=== PATIENT | female | born 2005 | race Caucasian/White ===

== ENCOUNTER 2023-03-09 17:56 | Inpatient (IN) ==
[2023-03-09] MEDS ORDERED: ACETAMINOPHEN 325 MG TAB PO STA (18:25)
[2023-03-09] MEDS ORDERED: SODIUM CHLORIDE 0.9% 500 ML IV STA (18:25)
[2023-03-09 20:33] LABS: Basophils # (auto) 0.04 K/uL (0.00-0.20); Basophils % (auto) 0.3 %; Eosinophils # (auto) 0.04 K/uL (0.00-0.50); Eosinophils % (auto) 0.3 %; Hematocrit (blood only) 42.3 % (37.0-47.0); Hemoglobin 14.5 g/dl (12.0-16.0); Immature Granulocytes # (auto) 0.02 K/uL (0.01-0.20); Immature Granulocytes % (auto) 0.2 %; Lymphocytes % (auto) 9.2 %; Mean Corpuscular Hemoglobin 30.3 pg (25.0-34.0); Mean Corpuscular Hgb Conc 34.3 g/dL (32.0-36.0); Mean Corpuscular Volume 88.3 fL (80.0-100.0); Mean Platelet Volume 8.8 fL (9.4-12.4); Monocytes # (auto) 0.56 K/uL (0.11-0.59); Monocytes % (auto) 4.3 %; Neutrophils % (auto) 85.7 %; Platelet Count 385 K/uL (130-400); RDW Coefficient of Variation 12.5 % (11.5-14.5); RDW Standard Deviation 40.9 fL (36.4-46.3); Red Blood Count 4.79 M/uL (4.20-5.40); White Blood Count 13.06 K/ul (4.8-10.8)
[2023-03-09 20:48] LABS: Albumin Globulin Ratio 1.6 (0.9-2); Albumin Level 5.2 gm/dl (3.4-5.0); BUN Creatinine Ratio 10.8 (10-20); Bilirubin,Total 0.5 mg/dl (0.2-1.0); Calcium 10.4 mg/dl (8.6-10.3); Creatinine Clr Calc Pharmacy 113.9 ml/min; Est GFR (African American) 118.5 ml/min; Est GFR (Non-African American) 102.2 ml/min; Globulin 3.3 gm/dl (2.5-4.0); Potassium 3.7 mmol/L (3.5-5.1); Total Protein 8.5 gm/dl (6.0-8.3)
[2023-03-09 20:55] LABS: Troponin I High Sensitivity 2.8 pg/ml (0-14)
[2023-03-09 20:59] LABS: Pregnancy Test, Serum Negative (Negative)
[2023-03-09 21:02] LABS: Partial Thromboplastin Ratio 1.2; Partial Thromboplastin Time 34.4 Seconds (21.0-31.0); Prothrombin Time 10.9 Seconds (9.0-12.0)
[2023-03-09 21:22] LABS: Procalcitonin < 0.05 ng/ml (0-0.5)
[2023-03-09 21:29] LABS: Appearance Urine Clear (Clear); Bacteria Urine Automated Negative (Negative); Bilirubin Urine Negative (Negative); Blood Urine Negative (Negative); Cast Urine Automated 0 /lpf (0-5); Color Urine Yellow; Epithelial Cell Urine Auto >30 /lpf (0-5); Glucose Urine UA Negative (Negative); Ketones Urine Negative (Negative); Leukocyte Esterase Urine 1+ (Negative); Nitrite Urine Negative (Negative); Protein Urine Negative (Negative); RBC Urine Automated 0-4 /hpf (0-4); Specific Gravity Urine 1.021 (1.000-1.030); Urobilinogen Urine Negative (Negative)
[2023-03-09] MEDS ORDERED: SODIUM CHLORIDE 0.9% 1,000 ML IV ONE (21:52)
[2023-03-09] MEDS ORDERED: ACETAMINOPHEN 325 MG TAB ONE (21:53)
[2023-03-09] MEDS ORDERED: PIPERACILLIN/TAZOBACTAM 4.5 GM/120 ML BAG IV ONE (21:58)
[2023-03-09] MEDS ORDERED: KETOROLAC TROMETHAMINE 15 MG/ML VIAL IV STA (22:06)
--- NOTE | 2023-03-09 22:12 | Emergency Department Note ---
Impression & Plan Pyelonephritis, Tachycardia, Bilateral flank pain, Failure of outpatient treatment ED Provider Note NAME: AISHWARYA PARKER AGE: 17 SEX: F : 2005 ARRIVES VIA: Walk-In INFORMANT: [Patient] ED PROVIDER(S): [Deepak Stanton MD] CHIEF COMPLAINT: Flank pain HISTORY OF PRESENT ILLNESS: The patient is a 17-year-old female who presents to the ER with bilateral flank pain and concerns for a kidney infection. The patient was here on the , 4 days ago. She had been diagnosed with pyelonephritis and placed on Cipro. During her ED visit, she had a CT of the abdomen pelvis, there was no urinary obstruction. Her urine culture recently returned showing an organism that was not sensitive to Cipro, staph saprophyticus. She was switched to Bactrim, she has taken 1 dose so far. Patient states that she has bilateral flank pain now, it was initially just left-sided pain. She feels nauseated. She is shaky. She is concerned that she is getting worse. She is here with her mother. The patient had urinary burning that began about 6 days ago. The left flank pain began about 4 days ago. Again, the pain is now in both flanks. There has been no cough or congestion. She has never had a kidney infection before. She is not short of breath. PMHx/PSHx: See Below SOCIAL HISTORY: See Below. PHYSICAL EXAM: GENERAL: Patient is in moderate distress from pain. Tearful. HEENT: No acute trauma, normocephalic atraumatic, mucous membranes moist, no nasal congestion. NECK: No stridor, no adenopathy, no meningismus, trachea is midline. LUNGS: Clear to auscultation bilaterally, no wheeze, no rhonchi, breath sounds equal. HEART: Tachycardic, regular rhythm, no murmurs. ABDOMEN: Soft, mildly diffusely tender, no rebound. EXTREMITIES: No cyanosis or edema, full range of motion of all the joints without pain or difficulty, no signs for acute trauma. NEUROLOGIC: Oriented x 3, no acute motor or sensory deficits, no focal weakness. SKIN: No rash, no jaundice, no diaphoresis. DIFFERENTIAL DIAGNOSIS: Bacteremia or sepsis, pyelonephritis, failed outpatient treatment, renal failure, dehydration, electrolyte imbalance, among others. EMERGENCY DEPARTMENT COURSE/PROCEDURES: Prior/Outside records reviewed: Recent ED note, recent culture results. ECG per my interpretation: Indication was possible sepsis. The ECG shows sinus tachycardia with a rate of 118. There is some nonspecific ST change primarily in the inferior leads. There is no ST elevation. No PVCs. The QTc is 417. Continuous Cardiac Monitoring per my interpretation: An order was placed for continuous cardiac monitoring. The monitor shows a rate of 116 with sinus tachycardia. MEDICAL DECISION MAKING: There is a mild leukocytosis, this would be consistent with infection. There is a normal hemoglobin and platelet count. No concerning coagulopathy. No renal failure or significant electrolyte abnormality. Lactic acid level is not elevated making severe sepsis less likely. No concerning liver enzyme elevation. ECG showed a sinus tachycardia, no acute ischemia. Cardiac enzyme testing x1 was not consistent with acute cardiac injury. Procalcitonin level was not not elevated making serious bacterial infection less likely. testing returned negative. Urinalysis returned with findings consistent with possible infection versus some contamination. On exam, the patient was tachycardic and febrile. The patient has bilateral pyelonephritis. She has an organism which has not responded to the Cipro that was prescribed. She was switched to Bactrim just today but, presents to the ED with worsening complaints and worsening of her illness. She has failed outpatient treatment. The patient was given IV saline, IV Toradol, IV Zosyn. The Zosyn should cover the bacterial infection nicely. I spoke to the patient and her family. I do think a hospital stay is warranted. She has worsened despite outpatient treatment. IV antibiotics are indicated. The urinary infection is somewhat resistant and unfortunately, did not respond to the prescribed antibiotics. I spoke with case management, the on-call hospitalist was consulted. DISPOSITION: Patient's presentation and findings warrant a hospital stay. Past Med/Surg History Medical History Sinusitis Social History Smoking Status: Never smoker Hx Substance Use: No Preferred Language: Chilean Communication Ability: Effective Current Living Situation: Parent Feels Safe at Home: Yes Safety Concerns: Feels Safe At This Time Assistive Devices: None Allergies Allergies Allergy/AdvReac Type Severity Reaction Status Date / Time cefuroxime [From Ceftin] Allergy Intermediate FEET Verified 04/03/22 16:22 SWELLING, HIVES, FEVER A SMALL CHILD pollen extracts Allergy Intermediate ITCHY Verified 04/03/22 16:22 EYES, SNEEZING, CONGESTION Home Meds Previous Rx's Medication Instructions Recorded methylprednisolone 4 mg tablets in 4 mg PO DIRECTED #21 ea 04/03/22 a dose pack (Medrol (Oneal)) ciprofloxacin HCl 500 mg tablet 500 mg PO BID 7 days #14 tabs 03/05/23 phenazopyridine 200 mg tablet 200 mg PO TID PRN pain with 03/05/23 (Pyridium) urination #15 tabs Results & Data (ED) Vital Signs Vital Signs - 24 hr 03/09/23 18:21 03/09/23 22:10 03/09/23 22:20 Temperature 37 C 38.3 C H Temperature Source Temporal Artery Scan Oral Pulse Rate 116 H 110 H Pulse Rate [Apical] 116 H Pulse Rhythm Regular Pulse Strength Normal Respiratory Rate 18 21 24 Respiratory Effort / Characteristics Non-Labored Spontaneous Respiratory Depth Normal Respiratory Pattern Regular Blood Pressure 99/63 L Blood Pressure [Right Arm] 128/82 Blood Pressure Mean 75 Blood Pressure Mean [Right Arm] 97 Blood Pressure Position Sitting Pulse Oximetry 98 100 100 Oxygen Delivery Method Room Air Room Air Sepsis Recent Fever Within 48 Hours Yes Sepsis New/Unexplained Change in Mental Status No Sepsis Action Taken by Nursing No Action Required Home Medications Current Medication List: was personally reviewed by me Laboratory Data Attestation: I reviewed the patient's lab results. 03/09/23 20:12 03/09/23 20:12 Lab Results 03/09/23 03/09/23 03/09/23 Range/Units 20:12 20:12 20:12 WBC 13.06 H (4.8-10.8) K/ul RBC 4.79 (4.20-5.40) M/uL Hgb 14.5 (12.0-16.0) g/dl Hct 42.3 (37.0-47.0) % MCV 88.3 (80.0-100.0) fL MCH 30.3 (25.0-34.0) pg MCHC 34.3 (32.0-36.0) g/dL RDW Std Deviation 40.9 (36.4-46.3) fL RDW Coeff of Js 12.5 (11.5-14.5) % Plt Count 385 (130-400) K/uL MPV 8.8 L (9.4-12.4) fL Immature Gran % (Auto) 0.2 % Neut % (Auto) 85.7 % Lymph % (Auto) 9.2 % [place] % (Auto) 4.3 % Eos % (Auto) 0.3 % Baso % (Auto) 0.3 % Neut # (Auto) 11.20 H (1.40-6.50) K/uL Lymph # (Auto) 1.20 (1.20-3.40) K/uL [place] # (Auto) 0.56 (0.11-0.59) K/uL Eos # (Auto) 0.04 (0.00-0.50) K/uL Baso # (Auto) 0.04 (0.00-0.20) K/uL Immature Gran # (Auto) 0.02 (0.01-0.20) K/uL PT 10.9 (9.0-12.0) Seconds INR 1.0 (0.9-1.1) APTT 34.4 H (21.0-31.0) Seconds PTT Ratio 1.2 Sodium (136-145) mmol/L Potassium (3.5-5.1) mmol/L Chloride (98-107) mmol/L Carbon Dioxide (21-32) mmol/L Anion Gap (3-11) BUN (6-23) mg/dl Creatinine (0.6-1.2) mg/dl Est Cr Clr Drug Dosing ml/min Est GFR ( Amer) ml/min Est GFR (Non-Af Amer) ml/min BUN/Creatinine Ratio (10-20) Glucose (70-99(Fasting)) mg/dl Lactate 2.0 (0.4-2.0) mmol/L Calcium (8.6-10.3) mg/dl Magnesium (1.7-2.4) mg/dl Total Bilirubin (0.2-1.0) mg/dl AST (13-39) U/L ALT (7-52) U/L Alkaline Phosphatase (34-104) U/L Troponin I High Sens (0-14) pg/ml Total Protein (6.0-8.3) gm/dl Albumin (3.4-5.0) gm/dl Globulin (2.5-4.0) gm/dl Albumin/Globulin Ratio (0.9-2) Procalcitonin (0-0.5) ng/ml HCG, Qual (Negative) Urine Color Urine Appearance (Clear) Urine pH (4.5-7.5) Ur Specific [place] (1.000-1.030) Urine Protein (Negative) Urine Glucose (UA) (Negative) Urine Ketones (Negative) Urine Blood (Negative) Urine Nitrite (Negative) Urine Bilirubin (Negative) Urine Urobilinogen (Negative) Ur Leukocyte Esterase (Negative) Urine WBC (Auto) (0-5) /hpf Urine RBC (Auto) (0-4) /hpf U Hyaline Cast (Auto) (0-5) /lpf U Epithel Cells (Auto) (0-5) /lpf Urine Bacteria (Auto) (Negative) 03/09/23 03/09/23 03/09/23 Range/Units 20:12 20:12 20:17 WBC (4.8-10.8) K/ul RBC (4.20-5.40) M/uL Hgb (12.0-16.0) g/dl Hct (37.0-47.0) % MCV (80.0-100.0) fL MCH (25.0-34.0) pg MCHC (32.0-36.0) g/dL RDW Std Deviation (36.4-46.3) fL RDW Coeff of Js (11.5-14.5) % Plt Count (130-400) K/uL MPV (9.4-12.4) fL Immature Gran % (Auto) % Neut % (Auto) % Lymph % (Auto) % [place] % (Auto) % Eos % (Auto) % Baso % (Auto) % Neut # (Auto) (1.40-6.50) K/uL Lymph # (Auto) (1.20-3.40) K/uL [place] # (Auto) (0.11-0.59) K/uL Eos # (Auto) (0.00-0.50) K/uL Baso # (Auto) (0.00-0.20) K/uL Immature Gran # (Auto) (0.01-0.20) K/uL PT (9.0-12.0) Seconds INR (0.9-1.1) APTT (21.0-31.0) Seconds PTT Ratio Sodium 137 (136-145) mmol/L Potassium 3.7 (3.5-5.1) mmol/L Chloride 106 (98-107) mmol/L Carbon Dioxide 23 (21-32) mmol/L Anion Gap 8 (3-11) BUN 9 (6-23) mg/dl Creatinine 0.83 (0.6-1.2) mg/dl Est Cr Clr Drug Dosing 113.9 ml/min Est GFR ( Amer) 118.5 ml/min Est GFR (Non-Af Amer) 102.2 ml/min BUN/Creatinine Ratio 10.8 (10-20) Glucose 112 H (70-99(Fasting)) mg/dl Lactate (0.4-2.0) mmol/L Calcium 10.4 H (8.6-10.3) mg/dl Magnesium 2.0 (1.7-2.4) mg/dl Total Bilirubin 0.5 (0.2-1.0) mg/dl AST 26 (13-39) U/L ALT 22 (7-52) U/L Alkaline Phosphatase 72 (34-104) U/L Troponin I High Sens 2.8 (0-14) pg/ml Total Protein 8.5 H (6.0-8.3) gm/dl Albumin 5.2 H (3.4-5.0) gm/dl Globulin 3.3 (2.5-4.0) gm/dl Albumin/Globulin Ratio 1.6 (0.9-2) Procalcitonin < 0.05 (0-0.5) ng/ml HCG, Qual Negative (Negative) Urine Color Yellow Urine Appearance Clear (Clear) Urine pH 8.0 H (4.5-7.5) Ur Specific [place] 1.021 (1.000-1.030) Urine Protein Negative (Negative) Urine Glucose (UA) Negative (Negative) Urine Ketones Negative (Negative) Urine Blood Negative (Negative) Urine Nitrite Negative (Negative) Urine Bilirubin Negative (Negative) Urine Urobilinogen Negative (Negative) Ur Leukocyte Esterase 1+ H (Negative) Urine WBC (Auto) 5-10 H (0-5) /hpf Urine RBC (Auto) 0-4 (0-4) /hpf U Hyaline Cast (Auto) 0 (0-5) /lpf U Epithel Cells (Auto) >30 H (0-5) /lpf Urine Bacteria (Auto) Negative (Negative) Administered Medications Lactated Ringer's (Lr) 1,000 mls @ 125 mls/hr IV .Q8H HANNAH Stop: 03/10/23 23:46 Last Admin: 03/10/23 00:37 Dose: 125 mls/hr Documented By: ADB Discontinued Medications Acetaminophen (Acetaminophen 325 Mg Tab) 650 mg PO NOW STA Stop: 03/09/23 18:26 Last Admin: 03/09/23 22:01 Dose: 650 mg Documented By: PATRICIA Acetaminophen (Acetaminophen 325 Mg Tab) Confirm Administered Dose 650 mg .ROUTE .STK-MED ONE Stop: 03/09/23 21:54 Last Admin: 03/09/23 22:01 Dose: Not Given Documented By: PATRICIA Sodium Chloride (Nss) 500 mls @ 999 mls/hr IV .Q31M STA Stop: 03/09/23 18:55 Last Infusion: 03/09/23 22:41 Dose: 0 mls/hr Documented By: Admin: 03/09/23 22:01 Dose: 999 mls/hr Documented By: PATRICIA Sodium Chloride (Nss) 1,000 mls @ 999 mls/hr IV .Q1H1M ONE Stop: 03/09/23 22:52 Last Infusion: 03/09/23 23:12 Dose: 0 mls/hr Documented By: Admin: 03/09/23 22:01 Dose: 999 mls/hr Documented By: PATRICIA Piperacillin Sod/Tazobactam Sod (Zosyn) 4.5 gm in 120 mls @ 240 mls/hr IV NOW ONE Stop: 03/09/23 22:27 Last Infusion: 03/09/23 23:12 Dose: 0 mls/hr Documented By: Admin: 03/09/23 22:15 Dose: 240 mls/hr Documented By: PATRICIA Ketorolac Tromethamine (Ketorolac Tromethamine 15 Mg/Ml Vial) 15 mg IV NOW STA Stop: 03/09/23 22:07 Last Admin: 03/09/23 22:09 Dose: 15 mg Documented By: PATRICIA Discharge Plan Visit Data Chief Complaint: Flank Pain Stated Complaint: KIDNEY INFECTION ED Provider: Deepak Stanton Discharge Problem: Pyelonephritis, Tachycardia, Bilateral flank pain, Failure of outpatient treat ment Patient Disposition: Admitted As Inpatient Condition: Fair Discharge Instructions Interventions: ED Discharge Assessment Last Done: 03/09/23 23:33
--- NOTE | 2023-03-09 22:51 | History & Physical Report ---
Date of Service March 09, 2023 Assessment & Plan (1) Right flank pain: Plan: 17 year old female admitted for complicated UTI. R flank pain: -Patient w/ staph saprophyticus infection, sensitive to macrobid, oxacillin, bactrim. -Trialed cipro, one dose of bactrim. -U/A from 03/05 grew staph saprophyticus (InFeCtEd UrInAlYsIs) -Repeat U/A w/ LE and WBC but no bacteria. WBC 13 on CBC. -No evidence of hydronephrosis on CT scan from the . -Unclear if patient truly failed cipro since dysuria has dissipated. -Likely dehydration played a roll in patients condition as well. -Will continue on Zosyn for now, can recheck patient's condition later in the day tomorrow. -If patient feeling better can switch to oral antibiotic again. -Given 1.5L NSS in ER, will continue on LR at 125cc/hr. F/E/N/GI: Regular diet. Code status: Full DVT: Patient mobile, young, healthy, no need for chemoprophylaxis at this time. Dispo: Med/surg History of Present Illness Chief Complaint: R flank pain Primary Care Provider: [facility] Yang is a 17 year old female w/ no discernable past medical history coming in to the ER for R flank pain. Patient states Sunday she developed dysuria followed by L sided flank pain a few days later. She went to the ER on the and was treated with Cipro for her UTI. Culture came back with sensitivities however not to cipro. She had improvement in dysuria on the cipro but still had L flank pain persisting. She was contacted by the ER for follow up based on the culture and was switched to Bactrim. She received the Bactrim this morning and took one dose so far. She states she got a rash like hives after taking but was unsure if that was from the UTI or the antibiotic. Around 1 o'clock today she had transference of the pain to the R flank, with the area becoming very sensitive. She then came to the ER at 6 oclock. She has only had questionably one UTI in the past when she was elementary school aged but no anatomic abnormalities. She is accompanied by her mother and boyfriend in the ER. She had some chills with this and febrile in the ER to 38.3C. She denies constipation, diarrhea, upper respiratory symptoms, shortness of breath, chest pain. Patient has been able to eat okay, a little bit of nausea from the pain but no vomiting. She has not been drinking very well over the past few days, appetite has also been down. In the ER she received 1.5L NSS, tylenol, ketorolac, Zosyn 4.5gm. WBC 13.06, CMP unremarkable, U/A repeat with LE and WBC but no urine bacteria or nitrite. CT from the showed cystitis w/ L ascending infection. Allergies Allergy/AdvReac Type Severity Reaction Status Date / Time cefuroxime [From Ceftin] Allergy Intermediate FEET Verified 04/03/22 16:22 SWELLING, HIVES, FEVER A SMALL CHILD pollen extracts Allergy Intermediate ITCHY Verified 04/03/22 16:22 EYES, SNEEZING, CONGESTION Home Medications Medication Instructions Recorded Confirmed Type methylprednisolone 4 mg tablets in 4 mg PO DIRECTED #21 ea 04/03/22 Rx a dose pack (Medrol (Oneal)) ciprofloxacin HCl 500 mg tablet 500 mg PO BID 7 days #14 tabs 03/05/23 Rx phenazopyridine 200 mg tablet 200 mg PO TID PRN pain with 03/05/23 Rx (Pyridium) urination #15 tabs Past Med/Surg History Medical History Sinusitis Social History Smoking Status: Never smoker Hx Substance Use: No Preferred Language: Divehi Communication Ability: Effective Current Living Situation: Parent Feels Safe at Home: Yes Safety Concerns: Feels Safe At This Time Assistive Devices: None Review of Systems Review of Systems: as per HPI Physical Exam Constitutional: WD/WN, vitals as above Eyes: PERRL, conjunctivae normal, anicteric sclerae Respiratory: normal respiratory effort, lungs clear to auscultation Cardiovascular: Rate/Rhythm: + tachycardic Heart Sounds: normal S1 and normal S2 No peripheral edema. Gastrointestinal (Abdomen): Mild abdominal tenderness to palpation diffusely, soft, non distended, BS+. Skin: no rashes, warm and dry Psychiatric: Orientation: alert and oriented x 3 Anxious Results & Data Results & Data Vital Signs (Past 12 Hours) Vital Signs Temp Pulse Pulse Resp BP BP Pulse Ox 03/09/23 22:20 110 H 24 100 03/09/23 22:10 38.3 C H 116 H 21 128/82 100 03/09/23 18:21 37 C 116 H 18 99/63 L 98 O2 Del Method 03/09/23 22:20 Room Air 03/09/23 22:10 03/09/23 18:21 Room Air Supervising Physician Co-Signing Physician Notes Attending addendum: I have physically seen this patient, have supervised the medical residents activities, and agree with the H&P unless as otherwise noted. Assessment and Plan: Complicated UTI- Patient had been into the emergency department on 03/05/2023 and was empirically treated for urinary tract infection with Cipro, then Bactrim. Urinalysis from 03/05 grew staph saprophyticus, which on an empiric basis was not sensitive to the above antibiotics due to progression of symptoms CT of abdomen pelvis on 03/05 did not show any abnormality in either kidney She was started on Zosyn 4.5 g IV in the ED, and this be continued every 8 hours Status post 1 L normal saline in the ED, will continue rehydration with LR at 125 mils per hour Acetaminophen 650 mg by mouth every 6 hours as needed for mild pain or fever Resident Activity Tracking Resident Involvement: Resident Care Provided Care Provided: Adult Hospital Medicine
[2023-03-09] MEDS ORDERED: POLYETHYLENE (MIRALAX) 17 GM PACK PO PRN (23:47)
[2023-03-09] MEDS ORDERED: IBUPROFEN 600 MG TAB PO PRN (23:47)
[2023-03-09] MEDS ORDERED: ACETAMINOPHEN 325 MG TAB PO PRN (23:47)
[2023-03-09] MEDS ORDERED: ONDANSETRON INJ 2 MG/ML 2 ML VIAL IV PRN (23:47)
[2023-03-10] MEDS: LACTATED RINGER'S 1,000 ML IV SCH ×3 (00:37→16:47)
[2023-03-10] MEDS ORDERED: IBUPROFEN 600 MG TAB PO PRN (02:33)
[2023-03-10] MEDS: KETOROLAC TROMETHAMINE 15 MG/ML VIAL IV PRN ×3 (03:49→20:01)
[2023-03-10] MEDS: PIPERACILLIN/TAZOBACTAM 4.5 GM in DEXTROSE 5% MINI-B 100 ML IV SCH ×3 (03:49→20:01)
--- NOTE | 2023-03-10 08:20 | Hospitalist Progress Note ---
Date of Service March 10, 2023 Assessment & Plan (1) Right flank pain: Plan: 17 year old female admitted for complicated UTI/pyelonephritis R flank pain -Given 1.5L NSS in ER, will continue on LR at 125cc/hr. -Patient w/ staph saprophyticus infection, sensitive to macrobid, oxacillin, bactrim. -Trialed cipro, one dose of bactrim. -No evidence of hydronephrosis on CT scan from the . -Repeat U/A w/ LE and WBC but no bacteria. WBC 13 on CBC. -Urine culture from 03/05 grew staph saprophyticus Unsure if this is due to sample contamination, or if this is truly the bug causing her current infection No repeat culture taken Will continue IV Zosyn. If her condition improves with this abx choice, will consider discharging her on an oral Cephalosporin or Augmentin Should this not achieve noticeable improvement, will re-evaluate for alternate causes Back pain - Patient with back pain that seems to be of musculoskeletal origin given that even slight palpation of her back caused pain - Ordered Lidocaine patch as management - Tylenol PO also ordered as needed for pain Headache - Patient reporting headache that has not improved with Tylenol 650mg and Toradol - Will order Tylenol 1000mg as management F/E/N/GI: Regular diet. Code status: Full DVT: Patient mobile, young, healthy, no need for chemoprophylaxis at this time. Dispo: Med/surg Admission and Anticipated Discharge Date Admission Date: March 09, 2023 Supervising Physician Co-Signing Physician Notes I personally examined the patient and verified all rooney points of history and exam, discussed case, and agree with decision making with Dr Celis feeling better than before, although still not great. Extensive discussion with patient and mother. Vitals noted, in general she is awake and alert fatigued but not in distress. HEENT normocephalic atraumatic mucous membranes moist. She does not necessarily have CVA tenderness but she has fairly significant paraspinal hypertonicity and tendernessattempted gentle direct m yofascial, she was not really able to tolerate due to discomfort. No rashes pallor or icterus, no focal neurodeficits. Ascending urinary tract infection (clinically pyelonephritis) with sepsis pre sent on admissionimproving. Continue current antibiotics. Continue supportive care. Heating pad since not able to tolerate OMT Cata Soria is a 17 y/o female with no significant PMHx that was admitted due to complicated UTI/pyelonephritis. She was seen at bedside today and found to be awake, alert, oriented in all spheres, uncomfortable, afebrile, and in no acute distress. She refers having pain "everywhere" that began as back pain last night. This morning, her mother states she appears to be more comfortable compared to how she was last night. She also states that last night she was having chills and felt feverish. This morning she only endorses having residual back pain, but no current chills or fevers. She denies any other symptoms such as chest pain, SOB, N/V/C/D, or any additional symptom. Review of Systems Review of Systems: As per HPI. Physical Exam Physical Exam: General: Alert. Oriented x3. Afebrile. Uncomfortable. No acute distress. Eyes: pupils equal and reactive to light bilaterally, extraocular movements intact. Cardiac: Regular rate and rhythm, no murmurs/rubs/gallops. Respiratory: Clear to auscultation bilaterally a/p, no wheezes/rales/rhonchi. No increased work of breathing. Symmetrical chest rise. No respiratory distress. Abdomen: Soft, nontender, nondistended. MSK: pain on slight palpation of bilateral posterior flanks Integumentary: No rashes appreciated, warm, dry, pink. Lower Extremities: No lower extremity edema or swelling. No deep calf pain. Ollie's negative bilaterally. Results & Data Results & Data Vital Signs (Past 12 Hours) Vital Signs Temp Pulse Pulse Resp BP Pulse Ox O2 Del Method 03/10/23 02:21 37.5 C 97 H 98 Room Air 03/09/23 23:43 36.9 C 106 H 18 118/75 97 Room Air 03/09/23 23:27 37.9 C H 101 H 17 98/55 L 98 03/09/23 22:20 110 H 24 100 Room Air 03/09/23 22:10 38.3 C H 116 H 21 128/82 100 Resident Activity Tracking Resident Involvement: Resident Care Provided Care Provided: [facility]
[2023-03-10] MEDS: LIDOCAINE 5% 1 PATCH TD SCH (15:49)
[2023-03-10] MEDS ORDERED: ACETAMINOPHEN 500 MG TAB PO PRN (17:22)
--- NOTE | 2023-03-10 19:18 | Billing Data ---
Date of Service March 10, 2023 Coding Level of Care Code 27708 SUB INP/OBS CARE 3MIN
--- NOTE | 2023-03-10 22:33 | Billing Data ---
Date of Service March 10, 2023 Coding Level of Care Code 27505 INT INP/OBS CARE
[2023-03-11] MEDS: PIPERACILLIN/TAZOBACTAM 4.5 GM in DEXTROSE 5% MINI-B 100 ML IV SCH ×3 (03:35→20:01)
[2023-03-11] MEDS: KETOROLAC TROMETHAMINE 15 MG/ML VIAL IV PRN (07:09)
--- NOTE | 2023-03-11 07:23 | Electrocardiogram Report ---
Test Reason : Blood Pressure : / mmHG Vent. Rate : 118 BPM Atrial Rate : 118 BPM P-R Int : 122 ms QRS Dur : 078 ms QT Int : 298 ms P-R-T Axes : 069 110 038 degrees QTc Int : 417 ms Sinus tachycardia Right axis deviation Cannot rule out Anterior infarct , age undetermined Abnormal ECG No previous ECGs available Confirmed by Lj Miller ([id number]) on 03/11/2023 7:22:46 AM Referred By: REFERRED SELF Confirmed By:Lj Miller
[2023-03-11 08:07] LABS: Basophils # (auto) 0.03 K/uL (0.00-0.20); Basophils % (auto) 0.4 %; Eosinophils # (auto) 0.23 K/uL (0.00-0.50); Eosinophils % (auto) 3.3 %; Hematocrit (blood only) 33.8 % (37.0-47.0); Hemoglobin 11.5 g/dl (12.0-16.0); Immature Granulocytes # (auto) 0.02 K/uL (0.01-0.20); Immature Granulocytes % (auto) 0.3 %; Lymphocytes # (auto) 1.95 K/uL (1.20-3.40); Lymphocytes % (auto) 27.6 %; Mean Corpuscular Hemoglobin 30.4 pg (25.0-34.0); Mean Corpuscular Volume 89.4 fL (80.0-100.0); Mean Platelet Volume 8.9 fL (9.4-12.4); Monocytes # (auto) 0.48 K/uL (0.11-0.59); Monocytes % (auto) 6.8 %; Neutrophils # (auto) 4.36 K/uL (1.40-6.50); Neutrophils % (auto) 61.6 %; Platelet Count 261 K/uL (130-400); RDW Coefficient of Variation 12.3 % (11.5-14.5); RDW Standard Deviation 40.3 fL (36.4-46.3); Red Blood Count 3.78 M/uL (4.20-5.40); White Blood Count 7.07 K/ul (4.8-10.8)
[2023-03-11 08:08] LABS: Calcium 8.8 mg/dl (8.6-10.3); Creatinine Clr Calc Pharmacy 135.1 ml/min; Est GFR (African American) 145.6 ml/min; Est GFR (Non-African American) 125.6 ml/min; Potassium 3.8 mmol/L (3.5-5.1)
[2023-03-11] MEDS: LIDOCAINE 5% 1 PATCH TD SCH (09:35)
--- NOTE | 2023-03-11 12:37 | Discharge Summary ---
Date of Service March 12, 2023 Admission HPI Per Admitting Provider Yang is a 17 year old female w/ no discernable past medical history coming in to the ER for R flank pain. Patient states Sunday she developed dysuria followed by L sided flank pain a few days later. She went to the ER on the and was treated with Cipro for her UTI. Culture came back with sensitivities however not to cipro. She had improvement in dysuria on the cipro but still had L flank pain persisting. She was contacted by the ER for follow up based on the culture and was switched to Bactrim. She received the Bactrim this morning and took one dose so far. She states she got a rash like hives after taking but was unsure if that was from the UTI or the antibiotic. Around 1 o'clock today she had transference of the pain to the R flank, with the area becoming very sensitive. She then came to the ER at 6 oclock. She has only had questionably one UTI in the past when she was elementary school aged but no anatomic abnormalities. She is accompanied by her mother and boyfriend in the ER. She had some chills with this and febrile in the ER to 38.3C. She denies constipation, diarrhea, upper respiratory symptoms, shortness of breath, chest pain. Patient has been able to eat okay, a little bit of nausea from the pain but no vomiting. She has not been drinking very well over the past few days, appetite has also been down. In the ER she received 1.5L NSS, tylenol, ketorolac, Zosyn 4.5gm. WBC 13.06, CMP unremarkable, U/A repeat with LE and WBC but no urine bacteria or nitrite. CT from the showed cystitis w/ L ascending infection. Admission Exam Per Admitting Provider Constitutional: WD/WN, vitals as above Eyes: PERRL, conjunctivae normal, anicteric sclerae Respiratory: normal respiratory effort, lungs clear to auscultation Cardiovascular: Rate/Rhythm: + tachycardic Heart Sounds: normal S1 and normal S2 No peripheral edema. Gastrointestinal (Abdomen): Mild abdominal tenderness to palpation diffusely, soft, non distended, BS+. Skin: no rashes, warm and dry Psychiatric: Orientation: alert and oriented x 3 Anxious Discharge Exam General: Alert. Oriented x3. Afebrile. Uncomfortable. No acute distress. Eyes: pupils equal and reactive to light bilaterally, extraocular movements intact. Cardiac: Regular rate and rhythm, no murmurs/rubs/gallops. Respiratory: Clear to auscultation bilaterally a/p, no wheezes/rales/rhonchi. No increased work of breathing. Symmetrical chest rise. No respiratory distress. Abdomen: Soft, nontender, nondistended. MSK: pain on slight palpation of bilateral posterior flanks Integumentary: No rashes appreciated, warm, dry, pink. Lower Extremities: No lower extremity edema or swelling. No deep calf pain. Ollie's negative bilaterally. Discharge Data Allergies Allergy/AdvReac Type Severity Reaction Status Date / Time cefuroxime [From Ceftin] Allergy Intermediate FEET Verified 04/03/22 16:22 SWELLING, HIVES, FEVER A SMALL CHILD pollen extracts Allergy Intermediate ITCHY Verified 04/03/22 16:22 EYES, SNEEZING, CONGESTION Consultations 03/09/23 22:07 ED Decision to Admit Stat Hospital Course (1) Right flank pain: 17 year old female admitted for complicated UTI/pyelonephritis R flank pain -Given 1.5L NSS in ER, will continue on LR at 125cc/hr. -Patient w/ staph saprophyticus infection, sensitive to macrobid, oxacillin, bactrim. -Trialed cipro, one dose of bactrim. -No evidence of hydronephrosis on CT scan from the . -Repeat U/A w/ LE and WBC but no bacteria. WBC 13 on CBC. -Urine culture from 03/05 grew staph saprophyticus Unsure if this is due to sample contamination, or if this is truly the bug causing her current infection No repeat culture taken Will continue IV Zosyn. If her condition improves with this abx choice, will consider discharging her on an oral Cephalosporin or Augmentin Should this not achieve noticeable improvement, will re-evaluate for alternate causes Back pain - Patient with back pain that seems to be of musculoskeletal origin given that even slight palpation of her back caused pain - Ordered Lidocaine patch as management - Tylenol PO also ordered as needed for pain Headache - Patient reporting headache that has not improved with Tylenol 650mg and Toradol - Will order Tylenol 1000mg as management F/E/N/GI: Regular diet. Code status: Full DVT: Patient mobile, young, healthy, no need for chemoprophylaxis at this time. Dispo: Med/surg Discharge Plan Discharge Items Patient Disposition: Home - Self-Care Reason For Visit: R FLANK PAIN Discharge Diagnosis: Complicated UTI; Pyelonephritis Condition on Discharge: Fair Activity: Per Instructions section Non-emergency contact: Primary Care Provider Call non-emergency contact if: your symptoms worsen and your temperature is above 101 Follow-up/Referrals: [facility] [Primary Care Provider] - Diet: Regular Addtl Attending Provider Instructions: You were admitted to the hospital for urinary tract infection, specifically an infection that went up your urinary tract to involve your kidneys (a.k.a. Pyelonephritis). While in the hospital, you were treated with intravenous Zosyn. Since your condition improved with this antibiotic, we will be discharging you on a similar medication called Augmentin, which you will take for 7 days in order to complete a 10 day course (counting the 3 days you had intravenous antibiotics while in the hospital). A discharge summary will be sent to your primary care physician to ensure continuity of care. Please bring this discharge summary with you to your next office appointment so that your provider can review it at that time. Follow-up appointments: Make a follow-up appointment with your PCP within the next week. It is very important that you follow up with them shortly after discharge from the hospital. Keep all your follow-up appointments as already scheduled. If you cannot make an appointment, notify your provider. Medications: Your medication list has been reviewed and reconciled upon discharge to ensure accuracy and continuity of care. An updated list of all your medications is included with your hospital discharge paperwork. Please review this list closely, and make note of any changes. We sent a new medication called Augmentin to your pharmacy. Take Augmentin 875-125 mg by mouth two times a day (every 12 hours) for 7 days. Please take this medication with meals to prevent gastrointestinal side effects such as nausea, vomiting, and diarrhea. If you have any issues filling these prescriptions, please call [phone] and ask to leave a message for Dr. Celis. Take your medications as instructed; do not skip a dose of your medicines. Make sure all of your doctors know every medicine you are taking (including trbp-equ-ypwhcts medicines, vitamins, and supplements). Call your primary care provider before taking any new medicines (including over- the-counter medicines, vitamins, and supplements), because some of these may interact with your current medications, or may make your symptoms worse. Tell your primary care provider if you cannot afford your medications. CONTACT YOUR PRIMARY CARE PROVIDER if you experience any of the following: Worsening of symptoms Fever, chills, or fatigue Difficulty following your treatment plan, or difficulty taking medications CALL 911 OR GO TO THE EMERGENCY DEPARTMENT if you experience any of the following: Sudden, severe abdominal pain or nausea/vomiting Severe chest pain, or chest pain that radiates (moves) to your jaw or arm Sudden, severe shortness of breath or difficulty breathing Thank you for allowing us to participate in your care. Pending Studies at Discharge: No Stand-Alone Forms: My [facility] [employer], Smoking Cessation Medications and DC Order Prescriptions: New amoxicillin-pot clavulanate 875-125 mg tablet 1 tab PO BID 8 Days Qty: 16 0RF Rx Instructions: Please take with meals to prevent possible side effects such as nausea, vomiting, or diarrhea Continued methylprednisolone [Medrol (Oneal)] 4 mg tablets,dose pack 4 mg PO DIRECTED Qty: 21 0RF phenazopyridine [Pyridium] 200 mg tablet 200 mg PO TID PRN (Reason: pain with urination) Qty: 15 0RF Discontinued ciprofloxacin HCl 500 mg tablet 500 mg PO BID 7 Days Qty: 14 0RF Admission Data Admit Date/Time: 03/09/23 22:52 Attending Provider: Giovanni Hu Admit Provider: Luis Anthony Primary Care Provider: [place] Other Providers: Cristian Vivar
--- NOTE | 2023-03-11 15:59 | Hospitalist Progress Note ---
Date of Service March 11, 2023 Assessment & Plan (1) Right flank pain: Plan 17 year old female admitted for complicated UTI/pyelonephritis R flank pain -Given 1.5L NSS in ER, will continue on LR at 125cc/hr. -Leukocytosis resolved (WBC 7.07 on am labs) -Urine culture from 03/05 grew staph saprophyticus sensitive to macrobid, oxacillin, bactrim. Trial of Cipro and single dose of Bactrim. No repeat culture taken Will continue IV Zosyn since it has been effective - Should she remain clinically and hemodynamically stable, plan to discharge patient tomorrow with course of Augmentin. Back pain - Patient with back pain that seems to be of musculoskeletal origin - Ordered Lidocaine patch as management - Tylenol PO also ordered as needed for pain Headache - Improved with Tylenol 1000mg as management F/E/N/GI: Regular diet. Code status: Full DVT: Patient mobile, young, healthy, no need for chemoprophylaxis at this time. Dispo: Med/surg; Discharge tomorrow with 7 day course of Augmentin to complete 10 days of therapy Admission and Anticipated Discharge Date Admission Date: March 09, 2023 Supervising Physician Co-Signing Physician Notes I personally examined the patient and verified all rooney points of history and exam, discussed case, and agree with decision making with Dr Celis overall feeling better still with some flank/back pain and just generally a bit uneasy about discharge since she's had a braulio course and initially failed outpt abx. vitals noted nad heent nc at mmm breathing unlabored no accessory muscles good effort Ascending urinary tract infection (clinically pyelonephritis) with sepsis pr esent on admissionimproving. Continue current antibiotics. as long as ongoing improvement - home on PO abx (cefdinir or augmentin most likkely) tomorrow - have been discussing that urine culture showing staph - ?just skin bacteria vs actual offending agent - so wanting Rx regimen that accounts for staph but also covers for more typical offenders like E Coli that might have simply been quinolone resistant (hence something on the order of cefdinir or augmentin) Continue supportive care. Heating pad and lidocaine patch since not able to tolerate OMT for back pain (mostly referred paraspinal spasms more than true CVA tenderness). Cata Yang is a 17 y/o female with no significant PMHx that was admitted due to complicated UTI/pyelonephritis. She was seen at bedside today and found to be awake, alert, oriented in all spheres, comfortable, afebrile, and in no acute distress. Her pain this morning is improved with analgesics. Her mother refers Yang was feeling chills during the night but does not recall having this. Otherwise, she is feeling better today. She denies chest pain, SOB, malaise, fevers, N/V/C/D, or any additional symptom. Review of Systems Review of Systems: As per HPI. Physical Exam Physical Exam: General: Alert. Oriented x3. Afebrile. Uncomfortable. No acute distress. Eyes: pupils equal and reactive to light bilaterally, extraocular movements intact. Cardiac: Regular rate and rhythm, no murmurs/rubs/gallops. Respiratory: Clear to auscultation bilaterally a/p, no wheezes/rales/rhonchi. No increased work of breathing. Symmetrical chest rise. No respiratory distress. Abdomen: Soft, nontender, nondistended. Integumentary: No rashes appreciated, warm, dry, pink. Lower Extremities: No lower extremity edema or swelling. No deep calf pain. Ollie's negative bilaterally. Results & Data Results & Data Vital Signs (Past 12 Hours) Vital Signs Temp Pulse Resp BP Pulse Ox O2 Del Method 03/11/23 08:00 36.9 C 82 18 115/66 96 Room Air Resident Activity Tracking Resident Involvement: Resident Care Provided Care Provided: Adult Hospital Medicine
--- NOTE | 2023-03-11 19:06 | Billing Data ---
Date of Service March 11, 2023 Coding Level of Care Code 61644 IN/OBS DISCH 30 MIN/LESS
[2023-03-12] MEDS: PIPERACILLIN/TAZOBACTAM 4.5 GM in DEXTROSE 5% MINI-B 100 ML IV SCH (03:58)
[2023-03-12 07:26] LABS: Calcium 9.2 mg/dl (8.6-10.3); Creatinine Clr Calc Pharmacy 129.5 ml/min; Est GFR (African American) 138.4 ml/min; Est GFR (Non-African American) 119.4 ml/min; Potassium 4.1 mmol/L (3.5-5.1)
[2023-03-12 07:29] LABS: Basophils # (auto) 0.03 K/uL (0.00-0.20); Basophils % (auto) 0.4 %; Eosinophils # (auto) 0.21 K/uL (0.00-0.50); Eosinophils % (auto) 3.1 %; Hematocrit (blood only) 36.4 % (37.0-47.0); Immature Granulocytes # (auto) 0.03 K/uL (0.01-0.20); Immature Granulocytes % (auto) 0.4 %; Lymphocytes # (auto) 2.21 K/uL (1.20-3.40); Lymphocytes % (auto) 32.4 %; Mean Corpuscular Hemoglobin 29.9 pg (25.0-34.0); Mean Corpuscular Volume 90.8 fL (80.0-100.0); Monocytes # (auto) 0.46 K/uL (0.11-0.59); Monocytes % (auto) 6.7 %; Neutrophils # (auto) 3.89 K/uL (1.40-6.50); Platelet Count 271 K/uL (130-400); RDW Coefficient of Variation 12.3 % (11.5-14.5); RDW Standard Deviation 40.7 fL (36.4-46.3); Red Blood Count 4.01 M/uL (4.20-5.40); White Blood Count 6.83 K/ul (4.8-10.8)
--- NOTE | 2023-03-12 07:49 | Discharge Summary ---
Date of Service March 12, 2023 Admission HPI Per Admitting Provider Yang is a 17 year old female w/ no discernable past medical history coming in to the ER for R flank pain. Patient states Sunday she developed dysuria followed by L sided flank pain a few days later. She went to the ER on the and was treated with Cipro for her UTI. Culture came back with sensitivities however not to cipro. She had improvement in dysuria on the cipro but still had L flank pain persisting. She was contacted by the ER for follow up based on the culture and was switched to Bactrim. She received the Bactrim this morning and took one dose so far. She states she got a rash like hives after taking but was unsure if that was from the UTI or the antibiotic. Around 1 o'clock today she had transference of the pain to the R flank, with the area becoming very sensitive. She then came to the ER at 6 oclock. She has only had questionably one UTI in the past when she was elementary school aged but no anatomic abnormalities. She is accompanied by her mother and boyfriend in the ER. She had some chills with this and febrile in the ER to 38.3C. She denies constipation, diarrhea, upper respiratory symptoms, shortness of breath, chest pain. Patient has been able to eat okay, a little bit of nausea from the pain but no vomiting. She has not been drinking very well over the past few days, appetite has also been down. In the ER she received 1.5L NSS, tylenol, ketorolac, Zosyn 4.5gm. WBC 13.06, CMP unremarkable, U/A repeat with LE and WBC but no urine bacteria or nitrite. CT from the showed cystitis w/ L ascending infection. Admission Exam Per Admitting Provider Constitutional: WD/WN, vitals as above Eyes: PERRL, conjunctivae normal, anicteric sclerae Respiratory: normal respiratory effort, lungs clear to auscultation Cardiovascular: Rate/Rhythm: + tachycardic Heart Sounds: normal S1 and normal S2 No peripheral edema. Gastrointestinal (Abdomen): Mild abdominal tenderness to palpation diffusely, soft, non distended, BS+. Skin: no rashes, warm and dry Psychiatric: Orientation: alert and oriented x 3 Anxious Principal Diagnosis Complicated UTI Discharge Exam Constitutional WD/WN, vitals as above Respiratory normal respiratory effort, lungs clear to auscultation Cardiovascular RRR, no murmur, no edema Gastrointestinal (Abdomen) normal bowel sounds, abdomen non-distended Skin no rashes, warm and dry Genitourinary negative CVA tenderness bilaterally Discharge Data Allergies Allergy/AdvReac Type Severity Reaction Status Date / Time cefuroxime [From Ceftin] Allergy Intermediate FEET Verified 04/03/22 16:22 SWELLING, HIVES, FEVER A SMALL CHILD pollen extracts Allergy Intermediate ITCHY Verified 04/03/22 16:22 EYES, SNEEZING, CONGESTION Consultations 03/09/23 22:07 ED Decision to Admit Stat Hospital Course (1) Right flank pain: (2) Complicated UTI (urinary tract infection): Plan Pt is a 17 year old female who was admitted for complicated UTI/pyelonephritis. #Pyelonephritis - Elevated WBC count of 13.06 at time of admission, decreased to 6.83 on the morning of discharge - Fluid resuscitation with IV fluids given -Urine culture from 03/05 grew staph saprophyticus sensitive to macrobid, oxacillin, bactrim. Pt had trial of Cipro and single dose of Bactrim pre-admission treated with IV Zosyn during hospital stay - Pt discharged with course of PO Augmentin - Zofran for nausea from med side effect. Total Time Total Time Spent Total Time Spent (In Minutes): see attending attestation Discharge Plan Discharge Items Patient Disposition: Home - Self-Care Reason For Visit: R FLANK PAIN Discharge Diagnosis: Complicated UTI; Pyelonephritis Condition on Discharge: Fair Activity: Per Instructions section Non-emergency contact: Primary Care Provider Call non-emergency contact if: your symptoms worsen and your temperature is above 101 Follow-up/Referrals: [place],[facility] [Primary Care Provider] - (PLEASE FOLLOW UP WITH [facility] IN 7-10 BUSINESS DAYS.) Diet: Regular Addtl Attending Provider Instructions: You were admitted to the hospital for urinary tract infection, specifically an infection that went up your urinary tract to involve your kidneys (a.k.a. Pyelonephritis). While in the hospital, you were treated with intravenous Zosyn. Since your condition improved with this antibiotic, we will be discharging you on a similar medication called Augmentin, which you will take for 7 days in order to complete a 10 day course (counting the 3 days you had intravenous antibiotics while in the hospital). A discharge summary will be sent to your primary care physician to ensure continuity of care. Please bring this discharge summary with you to your next office appointment so that your provider can review it at that time. Follow-up appointments: Make a follow-up appointment with your PCP within the next week. It is very important that you follow up with them shortly after discharge from the hospital. Keep all your follow-up appointments as already scheduled. If you cannot make an appointment, notify your provider. Medications: Your medication list has been reviewed and reconciled upon discharge to ensure accuracy and continuity of care. An updated list of all your medications is included with your hospital discharge paperwork. Please review this list closely, and make note of any changes. We sent a new medication called Augmentin to your pharmacy. Take Augmentin 875-125 mg by mouth two times a day (every 12 hours) for 7 days. Please take this medication with meals to prevent gastrointestinal side effects such as nausea, vomiting, and diarrhea. * We are also sending you home with a medication called Ondansetron (Zofran), which you can take as needed for nausea. If you have any issues filling these prescriptions, please call [phone] and ask to leave a message for Dr. Celis. Take your medications as instructed; do not skip a dose of your medicines. Make sure all of your doctors know every medicine you are taking (including [id number]-nesypkd medicines, vitamins, and supplements). Call your primary care provider before taking any new medicines (including over- the-counter medicines, vitamins, and supplements), because some of these may interact with your current medications, or may make your symptoms worse. Tell your primary care provider if you cannot afford your medications. CONTACT YOUR PRIMARY CARE PROVIDER if you experience any of the following: Worsening of symptoms Fever, chills, or fatigue Difficulty following your treatment plan, or difficulty taking medications CALL 911 OR GO TO THE EMERGENCY DEPARTMENT if you experience any of the following: Sudden, severe abdominal pain or nausea/vomiting Severe chest pain, or chest pain that radiates (moves) to your jaw or arm Sudden, severe shortness of breath or difficulty breathing Thank you for allowing us to participate in your care. Pending Studies at Discharge: No Stand-Alone Forms: My [employer], Work/School Release, Smoking Cessation Medications and DC Order Prescriptions: New amoxicillin-pot clavulanate 875-125 mg tablet 1 tab PO BID 8 Days Qty: 16 0RF Rx Instructions: Please take with meals to prevent possible side effects such as nausea, vomiting, or diarrhea ondansetron 4 mg tablet,disintegrating 4 mg PO QID PRN (Reason: nausea and vomiting) Qty: 7 0RF Continued methylprednisolone [Medrol (Oneal)] 4 mg tablets,dose pack 4 mg PO DIRECTED Qty: 21 0RF phenazopyridine [Pyridium] 200 mg tablet 200 mg PO TID PRN (Reason: pain with urination) Qty: 15 0RF Discontinued ciprofloxacin HCl 500 mg tablet 500 mg PO BID 7 Days Qty: 14 0RF Discharge Orders: Discharge Order (Routine); Ordered 03/12/23 Ordered By: Jason Mckinnon/Other Patient Handouts: Anatomy of the Female Urinary Tract, UTIs Understanding Admission Data Admit Date/Time: 03/09/23 22:52 Attending Provider: Olga Hussein Admit Provider: Luis Anthony Primary Care Provider: [facility] Other Providers: Cristian Vivar ; Giovanni Hu Other Interventions: Discharge Summary Assessment (RN) Last Done: 03/12/23 10:40 Supervising Physician Co-Signing Physician Notes Resident Physician Supervision Note: I independently interviewed and examined the patient and verified the rooney history and physical, reviewed labs and image studies and agree with resident findings and care plan. Resident Activity Tracking Resident Involvement: Resident Care Provided Care Provided: Adult Hospital Medicine
[2023-03-12] MEDS: LIDOCAINE 5% 1 PATCH TD SCH (08:10)
== END 2023-03-12 12:10 | disposition home or self-care (01) | DRG 872 ==
LOC: ED 17:56 → SUATTDRO 22:52 → 3N 22:52